=== PATIENT | male | born 1975 | race Caucasian/White ===

== ENCOUNTER 2017-07-04 18:42 | Inpatient (IN) | payer OTHER ==
[~2017-07-04] VITALS: Ht 177.8 cm; Wt 85.3 kg
[2017-07-04] MEDS ORDERED: OLAN5 PO (19:10)
[2017-07-04] MEDS ORDERED: CYCL10 PO (19:10)
[2017-07-04] MEDS ORDERED: NAPR500 PO (19:10)
[2017-07-04 19:53] LABS: BASOPHILS ABSOLUTE AUTO 0.08 K/mm3 (0.00-0.23); BASOPHILS PERCENT AUTO 1 % (0-2); EOSINOPHILS ABSOLUTE AUTO 0.76 K/mm3 (0.00-0.68); EOSINOPHILS PERCENT AUTO 7 % (0-6); Hematocrit 33.9 % (37.0-53.0); Hemoglobin 10.8 g/dL (13.5-17.5); IMMATURE GRAN ABSOLUTE AUTO 0.02 K/mm3 (0.00-0.10); IMMATURE GRAN PERCENT AUTO 0 % (0-1); LYMPHOCYTES ABSOLUTE AUTO 1.96 K/mm3 (0.84-5.20); LYMPHOCYTES PERCENT AUTO 17 % (21-46); MONOCYTES ABSOLUTE AUTO 0.88 K/mm3 (0.16-1.47); MONOCYTES PERCENT AUTO 8 % (4-13); Mean Corpuscular HGB 31.4 pg (26.0-34.0); Mean Corpuscular HGB Conc 31.9 g/dL (31.5-36.5); Mean Corpuscular Volume 99 fL (80-100); Mean Platelet Volume 9.1 fL (9.1-12.4); NEUTROPHILS ABSOLUTE AUTO 8.06 K/mm3 (1.96-9.15); NEUTROPHILS PERCENT AUTO 68 % (41-73); Platelet Count 399 K/mm3 (150-400); RDW Coefficient Variation 14.3 % (11.7-14.2); RDW Standard Deviation 50.8 fL (35.1-46.3); Red Blood Cell Count 3.44 M/mm3 (4.30-5.90); White Blood Cell Count 11.76 K/mm3 (4.00-11.30)
[2017-07-04 20:05] LABS: International Normalized Ratio 1.06
[2017-07-04 20:16] LABS: Alanine Aminotransfer (ALT/SGP 14 U/L (12-78); Albumin, Blood 3.2 g/dL (3.4-5.0); Albumin/Globulin Ratio 0.7 (0.8-1.8); Alk Phos 122 U/L (50-136); Anion Gap 9 mmol/L (6-16); Aspartate Aminotrans (AST/SGOT 23 U/L (12-37); Bilirubin, Total 0.3 mg/dL (0.1-1.0); Blood Urea Nitrogen 14 mg/dL (8-24); Bun/Creatinine Ratio 13.6 (12.0-20.0); CO2, Blood 26 mmol/L (21-32); Calcium, Blood 8.7 mg/dL (8.5-10.1); Chloride, Blood 107 mmol/L (98-108); Creatinine, Blood 1.03 mg/dL (0.60-1.20); Globulin, Blood 4.5 g/dL (2.2-4.0); Glomerular Filtration Rate >60 (60-); Glucose, Blood 92 mg/dL (70-99); Potassium, Blood 3.9 mmol/L (3.5-5.5); Sodium, Blood 142 mmol/L (136-145); Total Protein, Blood 7.7 g/dL (6.4-8.2)
[2017-07-04 21:05] LABS: Percent Saturation 12.4 % (20.0-50.0)
[2017-07-05 05:42] LABS: BASOPHILS ABSOLUTE AUTO 0.08 K/mm3 (0.00-0.23); BASOPHILS PERCENT AUTO 1 % (0-2); EOSINOPHILS ABSOLUTE AUTO 0.75 K/mm3 (0.00-0.68); EOSINOPHILS PERCENT AUTO 7 % (0-6); Hematocrit 31.9 % (37.0-53.0); Hemoglobin 10.1 g/dL (13.5-17.5); IMMATURE GRAN ABSOLUTE AUTO 0.03 K/mm3 (0.00-0.10); IMMATURE GRAN PERCENT AUTO 0 % (0-1); LYMPHOCYTES ABSOLUTE AUTO 1.76 K/mm3 (0.84-5.20); LYMPHOCYTES PERCENT AUTO 17 % (21-46); MONOCYTES ABSOLUTE AUTO 0.77 K/mm3 (0.16-1.47); MONOCYTES PERCENT AUTO 7 % (4-13); Mean Corpuscular HGB 30.8 pg (26.0-34.0); Mean Corpuscular HGB Conc 31.7 g/dL (31.5-36.5); Mean Corpuscular Volume 97 fL (80-100); Mean Platelet Volume 9.8 fL (9.1-12.4); NEUTROPHILS ABSOLUTE AUTO 7.06 K/mm3 (1.96-9.15); NEUTROPHILS PERCENT AUTO 68 % (41-73); Platelet Count 385 K/mm3 (150-400); RDW Coefficient Variation 14.4 % (11.7-14.2); RDW Standard Deviation 50.7 fL (35.1-46.3); Red Blood Cell Count 3.28 M/mm3 (4.30-5.90); White Blood Cell Count 10.45 K/mm3 (4.00-11.30)
[2017-07-05 06:15] LABS: Anion Gap 8 mmol/L (6-16); Blood Urea Nitrogen 12 mg/dL (8-24); Bun/Creatinine Ratio 11.8 (12.0-20.0); CO2, Blood 25 mmol/L (21-32); Calcium, Blood 8.4 mg/dL (8.5-10.1); Chloride, Blood 107 mmol/L (98-108); Creatinine, Blood 1.02 mg/dL (0.60-1.20); Glomerular Filtration Rate >60 (60-); Glucose, Blood 104 mg/dL (70-99); Sodium, Blood 140 mmol/L (136-145)
[2017-07-06 05:08] LABS: International Normalized Ratio 1.06
[2017-07-06 08:08] LABS: Homocysteine 16.7 umol/L (<15); dRVVT 47.8 sec (31.8-45.7)
[2017-07-06 21:03] LABS: Source, Urine Voided
[2017-07-06 21:05] LABS: Bilirubin, Urine Neg (Neg); Blood, Urine 5+ (Neg); Glucose Qualitative, Urine Neg (Neg); Ketones, Urine Neg (Neg); Leukocyte Esterase, Urine Neg (Neg); Nitrite, Urine Neg (Neg); Protein, Urine Neg (Neg); Specific Gravity, Urine 1.005 (1.003-1.022); Urobilinogen, Urine NORM (Normal)
[2017-07-06 21:12] LABS: Appearance, Urine Clear (Clear); Color, Urine Yellow (P-Yellow)
[2017-07-06 21:13] LABS: Amorphous Light (0-Heavy); Bacteria Not Seen /hpf; Red Blood Cells, Urine 50-100 /hpf (0-2); Squamous Epithelial Cells Not Seen /hpf (Few); White Blood Cells, Urine Not Seen /hpf (0-5)
[2017-07-07 05:45] LABS: International Normalized Ratio 1.28; Prothrombin Time Results 13.4 Sec (9.7-11.5)
[2017-07-07 11:12] LABS: Activated Protein C Resistance 2.3 ratio (>1.9); Antithrombin III Activity 87 % (74-126); Protein C Activity 111 % (70-145)
[2017-07-07 11:29] LABS: U Amphetamine Screen Not Detected; U Barbituate Screen Not Detected; U Benzodiazapine Screen Not Detected; U Buprenorphine Screen Not Detected; U Cannabinoids Screen Not Detected; U Cocaine Screen Not Detected; U Methadone Screen Not Detected; U Methamphetamine Screen Not Detected; U Opiates Screen Not Detected; U Oxycodone Screen DETECTED; U Phencyclidine Screen Not Detected; U Propoxyphene Screen Not Detected
[2017-07-08 05:34] LABS: BASOPHILS ABSOLUTE AUTO 0.05 K/mm3 (0.00-0.23); BASOPHILS PERCENT AUTO 1 % (0-2); EOSINOPHILS ABSOLUTE AUTO 0.66 K/mm3 (0.00-0.68); EOSINOPHILS PERCENT AUTO 9 % (0-6); Hematocrit 32.8 % (37.0-53.0); Hemoglobin 10.6 g/dL (13.5-17.5); IMMATURE GRAN ABSOLUTE AUTO 0.02 K/mm3 (0.00-0.10); IMMATURE GRAN PERCENT AUTO 0 % (0-1); LYMPHOCYTES ABSOLUTE AUTO 2.06 K/mm3 (0.84-5.20); LYMPHOCYTES PERCENT AUTO 27 % (21-46); MONOCYTES ABSOLUTE AUTO 0.93 K/mm3 (0.16-1.47); MONOCYTES PERCENT AUTO 12 % (4-13); Mean Corpuscular HGB 31.3 pg (26.0-34.0); Mean Corpuscular HGB Conc 32.3 g/dL (31.5-36.5); Mean Corpuscular Volume 97 fL (80-100); Mean Platelet Volume 9.4 fL (9.1-12.4); NEUTROPHILS ABSOLUTE AUTO 3.94 K/mm3 (1.96-9.15); NEUTROPHILS PERCENT AUTO 51 % (41-73); Platelet Count 319 K/mm3 (150-400); RDW Coefficient Variation 14.1 % (11.7-14.2); RDW Standard Deviation 49.7 fL (35.1-46.3); Red Blood Cell Count 3.39 M/mm3 (4.30-5.90); White Blood Cell Count 7.66 K/mm3 (4.00-11.30)
[2017-07-08 05:48] LABS: Anion Gap 7 mmol/L (6-16); Blood Urea Nitrogen 19 mg/dL (8-24); Bun/Creatinine Ratio 15.8 (12.0-20.0); CO2, Blood 27 mmol/L (21-32); Calcium, Blood 8.8 mg/dL (8.5-10.1); Chloride, Blood 102 mmol/L (98-108); Glomerular Filtration Rate >60 (60-); Glucose, Blood 95 mg/dL (70-99); Potassium, Blood 3.9 mmol/L (3.5-5.5); Sodium, Blood 136 mmol/L (136-145)
[2017-07-08 05:50] LABS: International Normalized Ratio 1.71; Prothrombin Time Results 18.1 Sec (9.7-11.5)
[2017-07-08 14:50] LABS: Source, Urine Clean Catch
[2017-07-08 15:07] LABS: Appearance, Urine Clear (Clear); Bilirubin, Urine Neg (Neg); Blood, Urine 5+ (Neg); Color, Urine Yellow (P-Yellow); Glucose Qualitative, Urine Neg (Neg); Ketones, Urine Neg (Neg); Leukocyte Esterase, Urine Neg (Neg); Nitrite, Urine Neg (Neg); Protein, Urine Neg (Neg); Urobilinogen, Urine NORM (Normal)
[2017-07-08 15:28] LABS: Bacteria Rare /hpf; Red Blood Cells, Urine 25-50 /hpf (0-2); Squamous Epithelial Cells Rare /hpf (Few); White Blood Cells, Urine 0-2 /hpf (0-5)
[2017-07-09 05:29] LABS: International Normalized Ratio 2.67; Prothrombin Time Results 28.6 Sec (9.7-11.5)
[2017-07-10 05:22] LABS: International Normalized Ratio 3.32; Prothrombin Time Results 35.8 Sec (9.7-11.5)
[2017-07-10 05:33] LABS: Alanine Aminotransfer (ALT/SGP 177 U/L (12-78); Albumin, Blood 2.9 g/dL (3.4-5.0); Albumin/Globulin Ratio 0.6 (0.8-1.8); Alk Phos 124 U/L (50-136); Anion Gap 6 mmol/L (6-16); Aspartate Aminotrans (AST/SGOT 242 U/L (12-37); Bilirubin, Total 0.2 mg/dL (0.1-1.0); Blood Urea Nitrogen 19 mg/dL (8-24); Bun/Creatinine Ratio 15.2 (12.0-20.0); CO2, Blood 27 mmol/L (21-32); Calcium, Blood 8.8 mg/dL (8.5-10.1); Chloride, Blood 105 mmol/L (98-108); Creatinine, Blood 1.25 mg/dL (0.60-1.20); Globulin, Blood 4.6 g/dL (2.2-4.0); Glomerular Filtration Rate >60 (60-); Glucose, Blood 93 mg/dL (70-99); Potassium, Blood 4.2 mmol/L (3.5-5.5); Sodium, Blood 138 mmol/L (136-145); Total Protein, Blood 7.5 g/dL (6.4-8.2)
[2017-07-10] MEDS ORDERED: ACET325 PO (11:16)
[2017-07-10] MEDS ORDERED: AMLO5 PO (11:16)
[2017-07-10] MEDS ORDERED: Augmentin 875-1 EACH PO (11:17)
[2017-07-10] MEDS ORDERED: WARF3 PO (11:17)
== END 2017-07-10 12:22 | disposition home or self-care (01) | DRG 300 ==
LOC: ER 18:42 → MEDS 18:43 → ENPENDDIS 07-10 10:59 → MEDS 07-10 12:22
PROVIDERS: Emergency Medicine; Internal Medicine; Internal Medicine Interventional Cardiology
PROC: 3E033GC Introduction of Other Therapeutic Substance into Peripheral Vein, Percutaneous Approach (ICD-10-PCS; principal; 2017-07-05)
DX: I82.403 Acute embolism and thrombosis of unspecified deep veins of lower extremity, bilateral (principal); K12.2 Cellulitis and abscess of mouth; I85.10 Secondary esophageal varices without bleeding; K76.6 Portal hypertension; I47.1 Supraventricular tachycardia; K70.30 Alcoholic cirrhosis of liver without ascites; I10 Essential (primary) hypertension; D63.8 Anemia in other chronic diseases classified elsewhere; Z79.01 Long term (current) use of anticoagulants
CPT/HCPCS: 36415; 71046; 71260; 80048; 80053; 81001; 81240; 82728; 83090; 83540; 83550; 85025; 85300; 85301; 85303; 85306; 85307; 85610; 85613; 85670; 85730; 86147; 87040; 93005; 93010; 96374; 99285; J0295; J1644; J2060; J7040; Q9967

== ENCOUNTER → 2017-07-04 | Outpatient (CLI) | payer OTHER ==
[~2017-07-04] MED LIST: ACET325 PO; AMLO5 PO; Augmentin 875-1 EACH PO; CYCL10 PO; NAPR500 PO; OLAN5 PO; WARF3 PO; Zyprexa10 MG PO
[2017-07-04 12:33] LABS: BASOPHILS ABSOLUTE AUTO 0.07 K/mm3 (0.00-0.23); BASOPHILS PERCENT AUTO 1 % (0-2); EOSINOPHILS ABSOLUTE AUTO 0.62 K/mm3 (0.00-0.68); EOSINOPHILS PERCENT AUTO 5 % (0-6); Hematocrit 35.3 % (37.0-53.0); Hemoglobin 11.6 g/dL (13.5-17.5); IMMATURE GRAN ABSOLUTE AUTO 0.05 K/mm3 (0.00-0.10); IMMATURE GRAN PERCENT AUTO 0 % (0-1); LYMPHOCYTES PERCENT AUTO 14 % (21-46); MONOCYTES ABSOLUTE AUTO 0.74 K/mm3 (0.16-1.47); MONOCYTES PERCENT AUTO 6 % (4-13); Mean Corpuscular HGB Conc 32.9 g/dL (31.5-36.5); Mean Corpuscular Volume 98 fL (80-100); NEUTROPHILS ABSOLUTE AUTO 8.95 K/mm3 (1.96-9.15); NEUTROPHILS PERCENT AUTO 74 % (41-73); Platelet Count 424 K/mm3 (150-400); RDW Coefficient Variation 14.5 % (11.7-14.2); RDW Standard Deviation 50.5 fL (35.1-46.3); Red Blood Cell Count 3.62 M/mm3 (4.30-5.90); White Blood Cell Count 12.13 K/mm3 (4.00-11.30)
[2017-07-04 12:51] LABS: Alanine Aminotransfer (ALT/SGP 18 U/L (12-78); Albumin, Blood 3.4 g/dL (3.4-5.0); Albumin/Globulin Ratio 0.7 (0.8-1.8); Alk Phos 127 U/L (40-126); Anion Gap 7 mmol/L (6-16); Aspartate Aminotrans (AST/SGOT 22 U/L (12-37); Bilirubin, Total 0.3 mg/dL (0.1-1.0); Blood Urea Nitrogen 12 mg/dL (8-24); Bun/Creatinine Ratio 10.3 (12.0-20.0); CO2, Blood 30 mmol/L (21-32); Calcium, Blood 9.3 mg/dL (8.5-10.1); Chloride, Blood 102 mmol/L (98-108); Creatinine, Blood 1.16 mg/dL (0.60-1.20); Globulin, Blood 4.7 g/dL (2.2-4.0); Glomerular Filtration Rate >60 (60-); Glucose, Blood 84 mg/dL (70-99); Potassium, Blood 3.6 mmol/L (3.5-5.5); Sodium, Blood 139 mmol/L (136-145); Total Protein, Blood 8.1 g/dL (6.4-8.2)
== END | disposition home or self-care (01) ==
LOC: LAB EV 12:26 → LAB SHORT 12:26
PROVIDERS: Physician Assistant Medical
DX: R60.9 Edema, unspecified (principal)
CPT/HCPCS: 80053; 83880; 85025; 85379

== ENCOUNTER 2017-12-10 12:28 | Emergency (ER) | payer OTHER ==
[~2017-12-10] VITALS: Ht 177.8 cm; Wt 79.4 kg
[~2017-12-10 12:28] MED LIST changes: -Zyprexa10 MG PO
[2017-12-10 13:03] LABS: BASOPHILS ABSOLUTE AUTO 0.05 K/mm3 (0.00-0.23); BASOPHILS PERCENT AUTO 1 % (0-2); EOSINOPHILS ABSOLUTE AUTO 0.12 K/mm3 (0.00-0.68); EOSINOPHILS PERCENT AUTO 1 % (0-6); Hematocrit 42.5 % (37.0-53.0); Hemoglobin 14.2 g/dL (13.5-17.5); IMMATURE GRAN ABSOLUTE AUTO 0.02 K/mm3 (0.00-0.10); IMMATURE GRAN PERCENT AUTO 0 % (0-1); LYMPHOCYTES ABSOLUTE AUTO 1.31 K/mm3 (0.84-5.20); LYMPHOCYTES PERCENT AUTO 14 % (21-46); MONOCYTES ABSOLUTE AUTO 0.47 K/mm3 (0.16-1.47); MONOCYTES PERCENT AUTO 5 % (4-13); Mean Corpuscular HGB 32.4 pg (26.0-34.0); Mean Corpuscular HGB Conc 33.4 g/dL (31.5-36.5); Mean Corpuscular Volume 97 fL (80-100); Mean Platelet Volume 9.5 fL (9.1-12.4); NEUTROPHILS ABSOLUTE AUTO 7.41 K/mm3 (1.96-9.15); NEUTROPHILS PERCENT AUTO 79 % (41-73); Platelet Count 248 K/mm3 (150-400); RDW Coefficient Variation 13.4 % (11.7-14.2); RDW Standard Deviation 48.8 fL (35.1-46.3); Red Blood Cell Count 4.38 M/mm3 (4.30-5.90); White Blood Cell Count 9.38 K/mm3 (4.00-11.30)
[2017-12-10 13:28] LABS: Alanine Aminotransfer (ALT/SGP 23 U/L (12-78); Albumin, Blood 3.7 g/dL (3.4-5.0); Albumin/Globulin Ratio 0.9 (0.8-1.8); Alk Phos 92 U/L (50-136); Anion Gap 7 mmol/L (6-16); Aspartate Aminotrans (AST/SGOT 19 U/L (12-37); Bilirubin, Total 0.8 mg/dL (0.1-1.0); Blood Urea Nitrogen 20 mg/dL (8-24); Bun/Creatinine Ratio 16.4 (12.0-20.0); CO2, Blood 25 mmol/L (21-32); Calcium, Blood 8.5 mg/dL (8.5-10.1); Chloride, Blood 105 mmol/L (98-108); Creatinine, Blood 1.22 mg/dL (0.60-1.20); Ethanol (Alcohol), Blood, Med <3 mg/dL; Glomerular Filtration Rate >60 (60-); Glucose, Blood 104 mg/dL (70-99); Sodium, Blood 137 mmol/L (136-145); Thyroxine (T4) 10.7 ug/dL (4.5-12.1); Total Protein, Blood 7.7 g/dL (6.4-8.2)
[2017-12-10 13:32] LABS: Acetaminophen, Random <2.0 ug/mL (10.0-30.0)
[2017-12-10] MEDS ORDERED: Zyprexa10 MG PO (15:07)
== END 2017-12-10 15:34 | disposition home or self-care (01) ==
LOC: ER 12:28
PROVIDERS: Emergency Medicine
DX: F15.10 Other stimulant abuse, uncomplicated (principal); Z79.899 Other long term (current) drug therapy; Z79.01 Long term (current) use of anticoagulants; F20.9 Schizophrenia, unspecified; I10 Essential (primary) hypertension; Z87.891 Personal history of nicotine dependence
CPT/HCPCS: 36415; 80053; 84436; 84443; 85025; 99284; G0480

== ENCOUNTER 2020-08-03 19:11 | Observation (INO) | payer OTHER ==
[~2020-08-03] VITALS: Ht 177.8 cm; Wt 68.0 kg
[~2020-08-03 19:11] MED LIST changes: +Zyprexa10 MG PO
[2020-08-03 21:29] LABS: BASOPHILS ABSOLUTE AUTO 0.07 K/mm3 (0.00-0.23); BASOPHILS PERCENT AUTO 1 % (0-2); EOSINOPHILS ABSOLUTE AUTO 0.08 K/mm3 (0.00-0.68); EOSINOPHILS PERCENT AUTO 1 % (0-6); Hematocrit 40.3 % (37.0-53.0); Hemoglobin 13.4 g/dL (13.5-17.5); IMMATURE GRAN ABSOLUTE AUTO 0.03 K/mm3 (0.00-0.10); IMMATURE GRAN PERCENT AUTO 0 % (0-1); LYMPHOCYTES ABSOLUTE AUTO 1.98 K/mm3 (0.84-5.20); LYMPHOCYTES PERCENT AUTO 20 % (21-46); MONOCYTES ABSOLUTE AUTO 0.68 K/mm3 (0.16-1.47); MONOCYTES PERCENT AUTO 7 % (4-13); Mean Corpuscular HGB 33.7 pg (26.0-34.0); Mean Corpuscular HGB Conc 33.3 g/dL (31.5-36.5); Mean Corpuscular Volume 101 fL (80-100); NEUTROPHILS ABSOLUTE AUTO 7.02 K/mm3 (1.96-9.15); NEUTROPHILS PERCENT AUTO 71 % (41-73); Platelet Count 314 K/mm3 (150-400); RDW Coefficient Variation 13.1 % (11.7-14.2); RDW Standard Deviation 48.4 fL (35.1-46.3); Red Blood Cell Count 3.98 M/mm3 (4.30-5.90); White Blood Cell Count 9.86 K/mm3 (4.00-11.30)
[2020-08-03] MEDS ORDERED: LAMOTRIGINE100 M1 PO (22:15)
[2020-08-03] MEDS ORDERED: ABILIFY5 MG PO (22:15)
[2020-08-03] MEDS ORDERED: XARELTO20 MG (22:15)
[2020-08-04 03:52] LABS: Alanine Aminotransfer (ALT/SGP 29 U/L (12-78); Albumin, Blood 4.1 g/dL (3.4-5.0); Albumin/Globulin Ratio 1.2 (0.8-1.8); Alk Phos 82 U/L (50-136); Anion Gap 8 mmol/L (6-16); Aspartate Aminotrans (AST/SGOT 41 U/L (12-37); Bilirubin, Total 0.6 mg/dL (0.1-1.0); Blood Urea Nitrogen 22 mg/dL (8-24); Bun/Creatinine Ratio 12.6 (12.0-20.0); CO2, Blood 25 mmol/L (21-32); Calcium, Blood 8.9 mg/dL (8.5-10.1); Chloride, Blood 106 mmol/L (98-108); Creatinine, Blood 1.74 mg/dL (0.60-1.20); Ethanol (Alcohol), Blood, Med <3 mg/dL; Globulin, Blood 3.5 g/dL (2.2-4.0); Glomerular Filtration Rate 45 (60-); Glucose, Blood 71 mg/dL (70-99); Potassium, Blood 4.2 mmol/L (3.5-5.5); Salicylate <1.7 mg/dL (2.8-20.0); Sodium, Blood 139 mmol/L (136-145); Total Protein, Blood 7.6 g/dL (6.4-8.2)
[2020-08-04 04:01] LABS: Acetaminophen, Random <2.0 ug/mL (10.0-30.0)
[2020-08-04 06:01] LABS: Source, Urine Clean Catch
[2020-08-04 06:03] LABS: Bilirubin, Urine Neg (Neg); Blood, Urine 5+ (Neg); Glucose Qualitative, Urine Neg (Neg); Ketones, Urine 2+ (Neg); Leukocyte Esterase, Urine 1+ (Neg); Nitrite, Urine Neg (Neg); Protein, Urine Neg (Neg); Specific Gravity, Urine 1.015 (1.003-1.022); Urobilinogen, Urine NORM (Normal); pH, Urine 6.5 (5.0-8.0)
[2020-08-04 06:05] LABS: Appearance, Urine Clear (Clear); Color, Urine Yellow (P-Yellow)
[2020-08-04 06:09] LABS: Squamous Epithelial Cells Not Seen /hpf (Few)
[2020-08-04 06:10] LABS: Bacteria Few /hpf
[2020-08-04 06:13] LABS: U Amphetamine Screen DETECTED; U Barbituate Screen Not Detected; U Benzodiazapine Screen Not Detected; U Buprenorphine Screen Not Detected; U Cannabinoids Screen DETECTED; U Cocaine Screen Not Detected; U Methadone Screen Not Detected; U Methamphetamine Screen DETECTED; U Opiates Screen Not Detected; U Oxycodone Screen Not Detected; U Phencyclidine Screen Not Detected; U Propoxyphene Screen Not Detected
[2020-08-04 13:01] LABS: Influenza A, PCR NEGATIVE (NEGATIVE); Influenza B, PCR NEGATIVE (NEGATIVE); Resp Syncytial Virus, PCR NEGATIVE (NEGATIVE); SARS-Cov-2 (COVID-19) PCR, MMC NEGATIVE (NEGATIVE)
== END 2020-08-06 17:45 | disposition home or self-care (01) ==
LOC: ER 19:11 → EOR 19:12
PROVIDERS: Physician Assistant; ADMIT Emergency Medicine
DX: F20.9 Schizophrenia, unspecified (principal); F12.151 Cannabis abuse with psychotic disorder with hallucinations; F19.151 Other psychoactive substance abuse with psychoactive substance-induced psychotic disorder with hallucinations; F10.10 Alcohol abuse, uncomplicated; I10 Essential (primary) hypertension; D68.9 Coagulation defect, unspecified; Z87.891 Personal history of nicotine dependence; Z91.14 Patient's other noncompliance with medication regimen; Z81.8 Family history of other mental and behavioral disorders; Z56.0 Unemployment, unspecified; Z79.01 Long term (current) use of anticoagulants
CPT/HCPCS: 0241U; 36415; 80053; 81001; 85025; 87086; A9270; G0480

== ENCOUNTER 2021-11-21 15:01 | Emergency (ER) | payer OTHER ==
[~2021-11-21] VITALS: Ht 175.3 cm; Wt 72.6 kg
[~2021-11-21 15:01] MED LIST changes: +ABILIFY5 MG PO; +LAMOTRIGINE100 M1 PO; +OLAN10 PO; +XARELTO20 MG
[2021-11-21 15:59] LABS: Influenza A, PCR NEGATIVE (NEGATIVE); Influenza B, PCR NEGATIVE (NEGATIVE); Resp Syncytial Virus, PCR NEGATIVE (NEGATIVE); SARS-Cov-2 (COVID-19) PCR, MMC NEGATIVE (NEGATIVE)
== END 2021-11-21 17:46 | disposition left against medical advice (07) ==
LOC: ER 15:01
PROVIDERS: Emergency Medicine
DX: R05.9 Cough, unspecified (principal); Z53.21 Procedure and treatment not carried out due to patient leaving prior to being seen by health care provider; Z20.822 Contact with and (suspected) exposure to COVID-19
CPT/HCPCS: 0241U

== ENCOUNTER 2022-08-07 09:38 | Inpatient (IN) | payer OTHER ==
[~2022-08-07] VITALS: Ht 177.8 cm; Wt 79.2 kg
[2022-08-07 10:07] LABS: BASOPHILS ABSOLUTE AUTO 0.09 K/mm3 (0.00-0.23); BASOPHILS PERCENT AUTO 1 % (0-2); EOSINOPHILS ABSOLUTE AUTO 0.02 K/mm3 (0.00-0.68); EOSINOPHILS PERCENT AUTO 0 % (0-6); Hematocrit 41.1 % (37.0-53.0); Hemoglobin 14.1 g/dL (13.5-17.5); IMMATURE GRAN ABSOLUTE AUTO 0.05 K/mm3 (0.00-0.10); IMMATURE GRAN PERCENT AUTO 0 % (0-1); LYMPHOCYTES ABSOLUTE AUTO 0.98 K/mm3 (0.84-5.20); LYMPHOCYTES PERCENT AUTO 7 % (21-46); MONOCYTES ABSOLUTE AUTO 0.73 K/mm3 (0.16-1.47); MONOCYTES PERCENT AUTO 5 % (4-13); Mean Corpuscular HGB 35.6 pg (26.0-34.0); Mean Corpuscular HGB Conc 34.3 g/dL (31.5-36.5); Mean Corpuscular Volume 104 fL (80-100); Mean Platelet Volume 9.2 fL (9.1-12.4); NEUTROPHILS ABSOLUTE AUTO 11.73 K/mm3 (1.96-9.15); NEUTROPHILS PERCENT AUTO 86 % (41-73); Platelet Count 248 K/mm3 (150-400); RDW Coefficient Variation 14.1 % (11.7-14.2); RDW Standard Deviation 54.8 fL (35.1-46.3); Red Blood Cell Count 3.96 M/mm3 (4.30-5.90)
[2022-08-07 10:44] LABS: Albumin, Blood 4.3 g/dL (3.4-5.0); Bilirubin, Total 1.1 mg/dL (0.1-1.0); Calcium, Blood 9.7 mg/dL (8.5-10.1); Creatinine, Blood 1.05 mg/dL (0.60-1.20); Globulin, Blood 4.1 g/dL (2.2-4.0); Potassium, Blood 3.9 mmol/L (3.5-5.5); Total Protein, Blood 8.4 g/dL (6.4-8.2)
[2022-08-07 10:47] LABS: International Normalized Ratio 0.96; Prothrombin Time Results 10.1 Sec (9.7-11.5)
[2022-08-07 15:00] VITALS: BP 154/99
[2022-08-07 16:00] VITALS: BP 150/96
--- NOTE | 2022-08-07 16:02 | NUR ---
JUSTEN WAS ADMITTED TO ICU BED 9 AT 1453, FROM ED A PCU STATUS PATIENT. HE DENIES ANY COMPLAINTS CURRENTLY. HE WAS HAVING SOME HICCUPS BUT NO VOMITING. HE IS TAKING IN WATER AND JELLO. HE IS INSTRUCTED TO CALL BEFORE GETTING OUT OF BED TO ASSESS HIS ABILITY TO MOVE INDEPENDENTLY.
--- NOTE | 2022-08-07 16:05 | NUR ---
PT ARRIVED TO UNIT AT 1443 WITH PCU STATUS. ADMISSION ASSESSMENT COMPLETED. PT'S BOWEL SOUNDS HYPERACTIVE. PT HAS NOT VOMITTED SINCE ADMISSION TO THE UNIT. PT DOES NOT COMPLAIN OF PAIN. PT IS SINUS TACH AT 108. PT IS HYPERTENSIVE, 150/96 WITH A MAP OF 110. NS RUNNING AT 100 ML/HR. WILL CONTINUE TO MONITOR.
--- NOTE | 2022-08-07 16:16 | NUR ---
Upon receiving a referral for spiritual care, I visited the patient. Patient is lying on his side and resting. He awakens and after my introduction, he states that he is a Confucianist. He tells me that he is afraid that he can't recover and asks for prayer. I provide prayer and nonjudgemental therapeutic listening. Patient responded well and asks if I would return tomorrow. I will continue to remain available.
[2022-08-07 16:25] LABS: Hematocrit 36.2 % (37.0-53.0); Hemoglobin 12.7 g/dL (13.5-17.5)
[2022-08-07 17:04] VITALS: BP 145/94
--- NOTE | 2022-08-07 18:14 | NUR ---
SHIFT SUMMARY PT HAS BEEN RESTING QUIETLY SINCE BEING ADMITTED TO THE FLOOR. THE PATIENT HAS BEEN IN SINUS TACH AT 103 AND HYPERTENSIVE WITH HIS LAST BLOOD PRESSURE BEING 132/91 WITH A MAP OF 102. THE PATIENT HAS NOT VOMITTED THIS SHIFT. THE PATIENT DIDN'T CONSUME ANY OF HIS DINNER TRAY. THIS STUDENT NURSE WILL CONTINUE TO MONITOR UNTIL CARE IS TRANSITIONED TO NOC SHIFT.
[2022-08-07 19:32] VITALS: BP 155/95
[2022-08-07 23:33] VITALS: BP 143/88
[2022-08-08] VITALS (7 sets, daily range): BP systolic 130–162; BP diastolic 80–112
[2022-08-08 03:33] LABS: Hematocrit 34.7 % (37.0-53.0); Hemoglobin 12.1 g/dL (13.5-17.5); Mean Corpuscular HGB 35.7 pg (26.0-34.0); Mean Corpuscular HGB Conc 34.9 g/dL (31.5-36.5); Mean Corpuscular Volume 102 fL (80-100); Mean Platelet Volume 9.7 fL (9.1-12.4); Platelet Count 183 K/mm3 (150-400); RDW Coefficient Variation 13.7 % (11.7-14.2); RDW Standard Deviation 52.5 fL (35.1-46.3); Red Blood Cell Count 3.39 M/mm3 (4.30-5.90); White Blood Cell Count 7.28 K/mm3 (4.00-11.30)
[2022-08-08 03:58] LABS: Albumin, Blood 3.1 g/dL (3.4-5.0); Bilirubin, Total 1.3 mg/dL (0.1-1.0); Bun/Creatinine Ratio 19.2 (12.0-20.0); Calcium, Blood 8.6 mg/dL (8.5-10.1); Creatinine, Blood 1.04 mg/dL (0.60-1.20); Globulin, Blood 3.1 g/dL (2.2-4.0); Potassium, Blood 3.6 mmol/L (3.5-5.5)
[2022-08-08 05:29] LABS: Total Protein, Blood 6.2 g/dL (6.4-8.2)
--- NOTE | 2022-08-08 06:02 | NUR ---
PATIENT AOX3-4, WITH CIWA SCORES FROM 0-9 OVERNIGHT. PRN LIBRIUM AND ATIVAN GIVEN X1. SR/ST WITH SYS 140'S. ROOM AIR. NO BOWEL MOVEMENTS OR N/V OVERNIGHT.
--- NOTE | 2022-08-08 15:47 | NUR ---
Patient is lying in bed in the dark facing the wall and alert. He is slow to trust but admits to struggling with who he is and where he is in life at this time. He deflects answering questions of depth but does allow for a prayer to be said for him. I gladly provided prayer and continue to remain available to patient and family. He showed only minor positive change but hopefully some therapeutic alliance is being established.
[2022-08-08 16:04] LABS: Hematocrit 35.2 % (37.0-53.0); Hemoglobin 12.5 g/dL (13.5-17.5)
--- NOTE | 2022-08-08 17:19 | NUR ---
SUMMARY PT RESTING IN BED. A/O X4. MEDICATING PER CIWA WITH LIBRIUM AND ATIVAN. PT IS PLEASANT, POLITE, AND COOPERATIVE WITH CARE. AWAITING GI TO SEE PT. HAD ONE BM THAT WAS BROWN LOOSE. H&H HAS REMAINED STABLE TODAY WELL VS. NO SIGN OF DISTRESS. USING CALL LIGHT APPROPRIATELY.
--- NOTE | 2022-08-08 17:43 | NUR ---
CALLED DR. GOODSON TO VERIFY CONSULT. HE WAS UNAWARE OF CONSULT BUT WILL SEE THE PT AND IS IN CONTACT WITH DR. DELGADO.
--- NOTE | 2022-08-08 21:53 | NUR ---
PATIENT UP IN ROOM TO TOILET WITHOUT DIFFICULTY. AGREEING TO CALL IF HE HAS A BM SO WE CAN VISUALIZE AND CHART. NO C/O NAUSEA. VERBALIZED FEELING ANXIOUS AND SHAKY. LIBRIUM GIVEN. MELATONIN GIVEN FOR SLEEP. IV SITE LEAKING, SITE CHANGED TO LEFT FA.
[2022-08-09 03:19] LABS: Hemoglobin 11.9 g/dL (13.5-17.5); Mean Corpuscular HGB 35.8 pg (26.0-34.0); Mean Corpuscular Volume 102 fL (80-100); Mean Platelet Volume 9.4 fL (9.1-12.4); Platelet Count 158 K/mm3 (150-400); RDW Coefficient Variation 13.4 % (11.7-14.2); RDW Standard Deviation 50.8 fL (35.1-46.3); Red Blood Cell Count 3.32 M/mm3 (4.30-5.90); White Blood Cell Count 6.41 K/mm3 (4.00-11.30)
[2022-08-09 03:33] LABS: Bun/Creatinine Ratio 14.2 (12.0-20.0); Calcium, Blood 8.7 mg/dL (8.5-10.1); Creatinine, Blood 1.06 mg/dL (0.60-1.20); Potassium, Blood 3.2 mmol/L (3.5-5.5)
[2022-08-09 05:35] VITALS: BP 141/88
--- NOTE | 2022-08-09 06:34 | NUR ---
SUMMARY PATIENT SLEEPING MOST OF NIGHT, AWAKENS TO SLIGHT STIMULI. MEDICATED WITH LIBRIUM NEEDED FOR WITHDRAWALS WITH GOOD RELIEF. NO BM DURING THE NIGHT. NO C/O NAUSEA T/O NIGHT.
--- NOTE | 2022-08-09 07:00 | NUR ---
ASSUMED CARE OF PATIENT.
[2022-08-09 08:36] VITALS: BP 147/98
--- NOTE | 2022-08-09 11:15 | NUR ---
PROVIDER PHONE CALL: Pt complains of left forearm pain. Left upper arm is tender to palpation and pt will not allow ROM activity. Hospitalist notified. See new orders.
[2022-08-09 12:03] VITALS: BP 149/106
--- NOTE | 2022-08-09 12:15 | NUR ---
Upon receiving a request form patient, I returned to speak with the patient. She immediately tells me about the tears she has cried because of the guilt that she feels because of her past sins, even though she has confessed them to a Fourth Hand during confession. I then reviewed with her what her nory tradition says about such feelings and about the freedom, forgiveness and catholic one receives because of the work of the cross. Patient talks about the voices she hears in the hallway telling of all her sins and that she is no longer welcome in the cheondoism. I provide theological insights explaining her security in the cheondoism and with God regardless of the voices she hears. I also provide the patient with a Confucianism Bible to help her remember her value and place with God and the Yarsanism. Patient responded well and showed signs of increased peace and an easing of her spiritual distress.
--- NOTE | 2022-08-09 13:00 | NUR ---
PATIENT NPO AT THIS TIME. PATIENT IS RESTING IN BED COMFORTABLY WITH CALL LIGHT IN REACH.
--- NOTE | 2022-08-09 14:21 | NUR ---
AMA: Pt has requested to leave hospital without waiting for scope. He was offered ativan IV push to help with anxiety. Pt declined this. Dr Callahan came to bedside to speak with pt. Pt still states he would like to leave AMA. He ambulates and dressed independantly. Risks vs benefits of leaving were discussed with pt. He verbalizes understanding. Pt asked if he could return if he gets "sicker". He was told he could always go to the emergency department for help. Day surgery staff updated.
--- NOTE | 2022-08-09 14:27 | NUR ---
PT AMBULATED OUT OF UNIT
== END 2022-08-09 14:27 | disposition left against medical advice (07) | DRG 894 ==
LOC: ER 09:38 → PCU 13:13 → ICUW 13:13
PROVIDERS: Emergency Medicine; ADMIT Internal Medicine
DX: F10.239 Alcohol dependence with withdrawal, unspecified (principal); D68.59 Other primary thrombophilia; K92.1 Melena; D64.9 Anemia, unspecified; Y90.3 Blood alcohol level of 60-79 mg/100 ml; F20.9 Schizophrenia, unspecified; I10 Essential (primary) hypertension; K74.60 Unspecified cirrhosis of liver; K21.9 Gastro-esophageal reflux disease without esophagitis; Z87.891 Personal history of nicotine dependence; Z79.01 Long term (current) use of anticoagulants; Z86.718 Personal history of other venous thrombosis and embolism; Z79.899 Other long term (current) drug therapy; Z98.890 Other specified postprocedural states; Z53.29 Procedure and treatment not carried out because of patient's decision for other reasons
CPT/HCPCS: 36415; 80048; 80053; 82272; 83690; 85014; 85018; 85025; 85027; 85610; 85730; 93005; 93010; 96361; 96365; 96375; 99285-25; A9270; C9113; G0480; J2060; J2405; J2560; J3411; J3480; J7030; J7050

== ENCOUNTER 2023-05-28 10:24 | Day surgery (SDC) | payer OTHER ==
[~2023-05-28] VITALS: Ht 177.8 cm; Wt 76.9 kg
[~2023-05-28 10:24] MED LIST changes: +HYDHCL25 PO; +Lactated Ringer's 1,000 ML IV ONE; +propofoL 40 ML IV ONE
[2023-05-28] MEDS ORDERED: Lactated Ringer's 1,000 ML IV ONE (11:18)
[2023-05-28] MEDS ORDERED: Midazolam HCl 1MG / ML 2ML Vial ONE (11:39)
[2023-05-28 12:58] VITALS: BP 138/98
== END 2023-05-28 12:50 | disposition home or self-care (01) ==
LOC: ORSCSDS 10:24
PROVIDERS: Specialist
PROC: 0DJD8ZZ Inspection of Lower Intestinal Tract, Via Natural or Artificial Opening Endoscopic (ICD-10-PCS; principal; 2023-05-28 12:45)
PROC: 0DB68ZX Excision of Stomach, Via Natural or Artificial Opening Endoscopic, Diagnostic (ICD-10-PCS; principal; 2023-05-28 12:45)
DX: K70.30 Alcoholic cirrhosis of liver without ascites (principal); K29.70 Gastritis, unspecified, without bleeding; K44.9 Diaphragmatic hernia without obstruction or gangrene; Z12.11 Encounter for screening for malignant neoplasm of colon; K64.8 Other hemorrhoids; K57.30 Diverticulosis of large intestine without perforation or abscess without bleeding; Z83.719 Family history of colon polyps, unspecified; D64.9 Anemia, unspecified; R11.2 Nausea with vomiting, unspecified; Z86.718 Personal history of other venous thrombosis and embolism; F10.21 Alcohol dependence, in remission; F20.9 Schizophrenia, unspecified; Z79.899 Other long term (current) drug therapy
CPT/HCPCS: 88305; 88342; J2250; J2704; J7120

== ENCOUNTER 2024-06-16 09:13 | Emergency (ER) | payer OTHER ==
[~2024-06-16] VITALS: Ht 180.3 cm; Wt 74.8 kg
[~2024-06-16 09:13] MED LIST changes: +CHLO10 PO; -Lactated Ringer's 1,000 ML IV ONE; +OMEP20ER PO; +ONDA4ODT MM; +Oxazepam10 MG PO; -propofoL 40 ML IV ONE
[2024-06-16] MEDS ORDERED: Ondansetron HCl 2 MG / ML 2ML Vial IV ONE (10:00)
[2024-06-16] MEDS ORDERED: Pantoprazole Sodium 40 MG Injection IV ONE (10:00)
[2024-06-16] MEDS ORDERED: NS 1,000 ML IV SCH (10:00)
[2024-06-16 11:01] LABS: BASOPHILS ABSOLUTE AUTO 0.03 K/mm3 (0.00-0.23); BASOPHILS PERCENT AUTO 0 % (0-2); EOSINOPHILS ABSOLUTE AUTO 0.03 K/mm3 (0.00-0.68); EOSINOPHILS PERCENT AUTO 0 % (0-6); Hematocrit 44.1 % (37.0-53.0); Hemoglobin 15.9 g/dL (13.5-17.5); IMMATURE GRAN ABSOLUTE AUTO 0.04 K/mm3 (0.00-0.10); IMMATURE GRAN PERCENT AUTO 0 % (0-1); LYMPHOCYTES ABSOLUTE AUTO 2.08 K/mm3 (0.84-5.20); LYMPHOCYTES PERCENT AUTO 17 % (21-46); MONOCYTES ABSOLUTE AUTO 1.15 K/mm3 (0.16-1.47); MONOCYTES PERCENT AUTO 9 % (4-13); Mean Corpuscular HGB 33.1 pg (26.0-34.0); Mean Corpuscular HGB Conc 36.1 g/dL (31.5-36.5); Mean Corpuscular Volume 92 fL (80-100); Mean Platelet Volume 9.7 fL (9.1-12.4); NEUTROPHILS ABSOLUTE AUTO 9.22 K/mm3 (1.96-9.15); NEUTROPHILS PERCENT AUTO 74 % (41-73); Platelet Count 315 K/mm3 (150-400); RDW Coefficient Variation 11.9 % (11.7-14.2); RDW Standard Deviation 40.2 fL (35.1-46.3); Red Blood Cell Count 4.81 M/mm3 (4.30-5.90); White Blood Cell Count 12.55 K/mm3 (4.00-11.30)
[2024-06-16 11:39] LABS: Albumin, Blood 3.7 g/dL (3.4-5.0); Bilirubin, Total 1.4 mg/dL (0.1-1.0); Bun/Creatinine Ratio 22.3 (12.0-20.0); Calcium, Blood 9.8 mg/dL (8.5-10.1); Creatinine, Blood 1.3 mg/dL (0.60-1.20); Globulin, Blood 3.8 g/dL (2.2-4.0); Potassium, Blood 2.9 mmol/L (3.5-5.5); Total Protein, Blood 7.5 g/dL (6.4-8.2)
[2024-06-16] MEDS ORDERED: Metoclopramide HCl 5MG / ML 2ML Vial IV ONE (12:45)
[2024-06-16] MEDS ORDERED: Loperamide HCl 2 MG Cap PO ONE (12:45)
[2024-06-16 14:01] VITALS: BP 153/74
[2024-06-16] MEDS ORDERED: ONDA4ODT MM (14:02)
== END 2024-06-16 14:05 | disposition home or self-care (01) ==
LOC: ER 09:13
PROVIDERS: Emergency Medicine
DX: R11.2 Nausea with vomiting, unspecified (principal); R19.7 Diarrhea, unspecified; I10 Essential (primary) hypertension; Z79.899 Other long term (current) drug therapy
CPT/HCPCS: 80053; 83690; 83735; 85025; 96361; 96374; 96375; 99284-25; A9270; J2405; J2470; J2765; J7030